=== PATIENT | female | born 1960 | race Caucasian/White ===

== ENCOUNTER 2019-12-04 14:58 | Emergency (ER) | payer MEDICAID ==
[~2019-12-04] VITALS: Ht 172.7 cm; Wt 68.9 kg
[2019-12-04 15:02] VITALS: BP 113/81
[2019-12-04] MEDS ORDERED: KETOROLAC 30 MG/ML VIAL IM ONE (15:35)
[2019-12-04 15:44] VITALS: BP 113/81
== END 2019-12-04 15:44 | disposition home or self-care (01) ==
LOC: MED 14:58
DX: H66.91 Otitis media, unspecified, right ear (principal); J44.9 Chronic obstructive pulmonary disease, unspecified; Z88.5 Allergy status to narcotic agent
CPT/HCPCS: 96372; 99283; J1885